=== PATIENT | female | born 1995 | race Caucasian/White ===

== ENCOUNTER 2019-04-26 20:02 | Inpatient (IN) | payer OTHER ==
[~2019-04-26] VITALS: Ht 154.9 cm; Wt 83.1 kg
[~2019-04-26 20:02] MED LIST: CALC600T24 PO; FER325 PO; FOL8 PO; PREN-93 PO
[2019-04-26 21:34] VITALS: Ht 154.9 cm; Wt 83.1 kg
[2019-04-26 21:36] VITALS: BP 92/59; PULSE 80; RESP 18
[2019-04-26] MEDS ORDERED: LACTATED RINGER'S 1,000 ML IV PRN (22:37)
[2019-04-26] MEDS ORDERED: MISOPROSTOL 200 MCG TAB PR PRN (23:00)
[2019-04-26] MEDS ORDERED: OXYTOCIN 30 UNITS/LR 500 ML IV SCH ×2 (23:00)
[2019-04-26] MEDS ORDERED: BUTORPHANOL 2 MG INJ IV PRN (23:00)
[2019-04-26] MEDS ORDERED: LIDOCAINE 1% (MPF) 30 ML INJ INJ PRN (23:00)
[2019-04-26] MEDS ORDERED: IBUPROFEN 600 MG TAB PO PRN (23:00)
[2019-04-26] MEDS ORDERED: CARBOPROST 250 MCG INJ IM PRN (23:00)
[2019-04-26] MEDS ORDERED: METHYLERGONOVINE 0.2 MG INJ IM PRN (23:00)
[2019-04-26] MEDS ORDERED: OXYTOCIN 30 UNITS/LR 500 ML IV PRN (23:00)
[2019-04-26] MEDS: LACTATED RINGER'S 1,000 ML IV SCH (23:28)
[2019-04-27] MEDS: LACTATED RINGER'S 1,000 ML IV SCH ×3 (02:51→18:23)
[2019-04-27] MEDS: MISOPROSTOL 50 MCG CAPSULE PO SCH ×4 (03:07→22:24)
--- NOTE | 2019-04-27 03:11 | TRIAGE ---
OB Triage Datetime Report Generated by CPN: 04/27/2019 03:10 Datetime: 04/26/2019 23:51 Vaginal Exam Dilatation (cms): 1.0 Effacement (%): 40 Station: -3 Exam By: sahara Vaginal Bleeding: None Cervix, Consistency: Moderate Cervix, Position: Posterior Presentation 'A': Cephalic Datetime: 04/26/2019 23:30 Time of Arrival: 04/26/2019 23:30 EGA: 37.0 Arrived By: Ambulatory Arrived From: Home Datetime: 04/26/2019 23:13 Stage of : OB Triage Labor Evaluation Frequency: 1-7 Monitor Mode: External Duration (sec)2399: 40-70 Quality: Mild Pattern: Normal: <= 5 Contractions in 10 Minutes Resting Tone [place]: Relaxed Heart Rate FHR Baseline Rate: 125 Monitor Mode: External US FHR Baseline Changes: No Baseline Change Variability: Moderate 6-25 bpm Accelerations: Prolonged Datetime: 04/26/2019 22:51 Membrane Status: Intact Datetime: 04/26/2019 22:20 Stage of : OB Triage Labor Evaluation Frequency: 1-8 Monitor Mode: External Duration (sec)2399: 40-70 Quality: Mild Pattern: Normal: <= 5 Contractions in 10 Minutes Resting Tone [place]: Relaxed Heart Rate FHR Baseline Rate: 125 Monitor Mode: External US Variability: Moderate 6-25 bpm Accelerations: 15X15 Decelerations: None Datetime: 04/26/2019 21:54 Stage of : OB Triage Datetime: 04/26/2019 21:52 Stage of : OB Triage Datetime: 04/26/2019 21:30 Stage of : OB Triage Labor Evaluation Frequency: 1.5-6 Monitor Mode: External Duration (sec)2399: 40-60 Quality: Mild Pattern: Normal: <= 5 Contractions in 10 Minutes Resting Tone [place]: Relaxed Heart Rate FHR Baseline Rate: 120 Monitor Mode: External US Variability: Moderate 6-25 bpm Accelerations: 15X15 Decelerations: Variable Category: Category II Datetime: 04/26/2019 21:18 Stage of : OB Triage Datetime: 04/26/2019 21:04 Stage of : OB Triage Datetime: 04/26/2019 21:03 Stage of : OB Triage Assessment Type: Triage Maternal Assessment Level of Consciousness: Keenly Alert, Responsive DTR's/Clonus: DTRs 2+; No Clonus Headache: Denies Blurred Vision: No Respiratory Effort: Unlabored; Regular Rhythm; Equal Expansion Breath Sounds, Left: Clear and Equal Breath Sounds, Right: Clear and Equal Nausea/Vomiting: Denies RUQ Epigastric Pain: Denies Lower Extremities Edema: None Degree: None Upper Extremities Edema: None Degree: None Facial Edema: None Temperature Route: Oral Fall Risk Assessment History of Falling: (0) No Secondary Diagnosis: (0) No Ambulatory Aid: (0) Bedrest/Nurse Assist IV Therapy: (0) No Gait: (0) Normal/Bedrest/Immobile Mental Status: (0) Oriented to Own Ability Fall Score: 0 Fall Risk Score Definition: No Risk: No action required Pain Assessment Pain Scale: 0 Pain Presence: None/Denies Pain Type: N/A Datetime: 04/26/2019 21:01 EGA: 37.0 Datetime: 04/26/2019 21:00 Time of Arrival: 04/26/2019 19:49 Arrived By: Ambulatory Arrived From: [facility] Chief Complaint: Body itching since Tuesday Pt came to triage sent from MD office with orders for NST/BPP/CMP Movement: Present Contractions: Denies/Absent Rupture of Membranes: Denies Vaginal Bleeding: None Vaginal Discharge: Denies Abdominal Trauma: Not Applicable Time Provider Notified: 04/26/2019 21:54 Provider Notified: Initial Plan: NST/BPP/CMP Datetime: 04/26/2019 20:57 Stage of : OB Triage Monitor Mode: External Contraction Comments: [place] applied Heart Rate FHR Baseline Rate: 135 Monitor Mode: External US Comments: EFM applied Datetime: 04/26/2019 20:25 Stage of : OB Triage Datetime: 04/26/2019 20:14 Stage of : OB Triage
--- NOTE | 2019-04-27 13:59 | HP ---
Date/Time of Note Date/Time of Note DATE: 04/27/19 TIME: 13:54 OB - History Hx of Present Chief Complaint: generalized itching Estimated Due Date: May 17, 2019 : 5 Para: 3 Spontaneous : 1 Therapeutic : 0 Care: Good Care Ultrasounds: Normal mid trimester US Obstetrical Complications: None Medical Complications: None Past Family/Social History * Past Medical, Surgical, Family and Obstetric Histories reviewed from chart. GBS Status: Negative OB Admission Exam Vital Signs Vital Signs Vital Signs Date Temp Pulse Resp B/P (MAP) Pulse Ox O2 O2 Flow FiO2 Time Delivery Rate 04/26/19 98.3 80 18 92/59 (70) Room Air 21:36 Physical Exam HEENT: WNL Heart: Rhythm Normal Lungs: Clear, Equal Abdomen: WNL Extremities: Normal Reflexes: Normal Cervical Dilatation: None Effacement: 50% Station: -1 Membranes: Intact Heart Rate: 120's Accelerations: Accelerations Present Decelerations: No Decelerations Varibility: Moderate Last 72 hours Lab Results CBC & BMP 04/26/19 20:25 04/26/19 23:25 Liver Function Test 04/26/19 20:25 Alanine Aminotransferase (ALT/SGPT) 102 H Albumin 3.6 Alkaline Phosphatase 218 H Aspartate Amino Transf (AST/SGOT) 68 H Direct Bilirubin 0.00 Total Protein 7.4 OB Assessment/Plan Reason for admission: induction of labor Other Assessment: Suspected intrahepatic cholestasis of Plan: Induction Induction Method: per Misoprostol Protocol Other plan: Case discussed with Dr Beasley ([facility]) who recommends to induce the patient at this time due to suspicion for intrahepatic cholestasis of . SERGEY HOOPER MD Apr 27, 2019 13:59
[2019-04-28] MEDS: MISOPROSTOL 50 MCG CAPSULE PO SCH ×4 (02:35→13:00)
[2019-04-28] MEDS: LACTATED RINGER'S 1,000 ML IV SCH ×2 (04:38→11:41)
[2019-04-28] MEDS ORDERED: OXYTOCIN 30 UNITS/LR 500 ML IV SCH (12:30)
[2019-04-28] MEDS ORDERED: FENTAnyl 2MCG/ML-ROPIV 0.2% 100 ML ONE (13:07)
[2019-04-28] MEDS ORDERED: NALBUPHINE HCL (10 MG/1 ML) INJ IV PRN (14:00)
[2019-04-28] MEDS ORDERED: FENTAnyl 2MCG/ML-ROPIV 0.2% 100 ML BAG EPI SCH (14:00)
[2019-04-28] MEDS ORDERED: NALOXONE (0.4 MG/ML) INJ IV PRN (14:00)
[2019-04-28] MEDS ORDERED: ONDANSETRON 4 MG INJ IV PRN (14:00)
[2019-04-28] MEDS ORDERED: DIPHENHYDRAMINE 50 MG INJ IV PRN (14:00)
--- NOTE | 2019-04-28 14:00 | PREAC ---
Date/Time of Note Date/Time of Note DATE: 04/28/19 TIME: 13:56 Anesthesia Eval and Record Evaluation Time Pre-Procedure Interview DATE: 04/28/19 TIME: 12:26 Age 24 Sex female NPO: 8 hrs Preoperative diagnosis iup @ 38 wks, cholestasis, labor, Planned procedure nas Past Medical History Past Medical History: Includes GI: Other (cholestasis) : : (5), Para: (3), Gestational age: (38 wks.), Other (cholestasis) Surgery & Anesthesia Issues No known issue Meds Anticoagulation: No Beta [place] within 24 hr: No Reason Beta Sabine not given: Pt. not on B-Sabine Reported Medications Folic Acid* (Folic Acid*) 0.8 Mg Tablet, 0.8 MG PO DAILY, TAB 04/26/19 Calcium Carbonate* (Calcium Carbonate*) 600 MG Ca Tab, 600 MG PO DAILY, TAB 04/26/19 Vit No.124/Iron/FA ( Vitamin Tablet) 1 Each Tablet, 1 EACH PO DAILY, TAB 04/26/19 Ferrous Sulfate* (Ferrous Sulfate*) 325 Mg Tabec, 325 MG PO DAILY, TAB 04/26/19 Current Medications Lactated Ringer's 1,000 ml @ 125 mls/hr Q8H IV Last administered on 04/28/19at 11:41; Admin Dose 125 MLS/HR; Start 04/26/19 at 22:37 Butorphanol Tartrate (Stadol) 2 mg Q2H PRN IV .PAIN SCALE 6-10; Start 04/26/19 at 23:00 Lidocaine (Xylocaine 1% (Mpf)) 30 ml ONCE PRN INJ .EPISIOTOMY; Start 04/26/19 at 23:00 Oxytocin/Lactated Ringer's 500 ml @ 500 mls/hr ONCE POST IV ; Start 04/26/19 at 23:00 Oxytocin/Lactated Ringer's 500 ml @ 125 mls/hr POST IV ; Start 04/26/19 at 23:00 Ibuprofen (Motrin) 600 mg ONCE PRN PO .PAIN 1-5; Start 04/26/19 at 23:00 Lactated Ringer's 1,000 ml @ 2,000 mls/hr Q30M PRN IV .ANESTHESIA Last administered on 04/28/19at 12:27; Admin Dose 2,000 MLS/HR; Start 04/26/19 at 22:37 Oxytocin/Lactated Ringer's 500 ml @ 0 mls/hr ONCE PRN IV .VAGINAL BLEEDING; Start 04/26/19 at 23:00 Methylergonovine Maleate (Methergine) 0.2 mg ONCE PRN IM .VAGINAL BLEEDING; Start 04/26/19 at 23:00 Carboprost Tromethamine (Hemabate) 250 mcg ONCE PRN IM .VAGINAL BLEEDING; Start 04/26/19 at 23:00 Misoprostol (Cytotec) 1,000 mcg ONCE PRN IN .VAGINAL BLEEDING; Start 04/26/19 at 23:00 Misoprostol (Cytotec 50 Mcg Capsule) 50 mcg Q4 PO Last administered on 04/28/19at 06:37; Admin Dose 50 MCG; Start 04/27/19 at 01:00 Oxytocin/Lactated Ringer's 500 ml @ 0 mls/hr FOR INDUCTION IV Last administered on 04/28/19at 12:29; Admin Dose 1 MLS/HR; Start 04/28/19 at 12:30 Meds reviewed: Yes Allergies Coded Allergies: No Known Allergy (Unverified , 04/26/19) Allergies Reviewed: Yes Labs/Studies Labs Reviewed: Reviewed by anesthesiologist Result Diagram: 04/26/19 0440 04/26/192024 test: Positive Studies: ECG (n/a), CXR (n/a) Pre-procedure Exam Last vitals Vital Signs Date Temp Pulse Resp B/P (MAP) Pulse Ox O2 O2 Flow FiO2 Time Delivery Rate 04/26/19 98.3 80 18 92/59 (70) Room Air 21:36 Airway: Adequate mouth opening, Adequate thyromental dist Mallampati: Mallampati II Teeth: Normal Lung: Normal Heart: Normal ASA Physical Status ASA physical status: 2 Emergency: E Planned Anesthetic General/MAC: MAC Neuraxial: Epidural Planned Pain Management Epidural, Parenteral pain med, Other neuraxial med Pre-operative Attestations Prior to commencing anesthesia and surgery, the patient was re-evaluated, there was verification of: *The patient's identity *The results of appropriate recent lab work and preoperative vital signs *The above evaluation not changing prior to induction *Anesthetic plan, risk benefits, alternative and complications discussed with patient/family; questions answered; patient/family understands, accepts and wishes to proceed. Athletic Director used DELMA DALLAS MD Apr 28, 2019 14:00
[2019-04-28] MEDS ORDERED: CEFAZOLIN 2 GM/50 ML (PMX) 50 ML IVPB ONE ×2 (21:09→21:30)
--- NOTE | 2019-04-28 21:21 | LDN ---
Date/Time of Note Date/Time of Note DATE: 04/28/19 TIME: 21:17 Delivery Summary over intact perineum. Placenta and membranes delivered spontaneously and complete. Uterine atony noted. Hemabate, Cytotec and methergine given. Using a large curette, sharp curettage performed. Weeks of Gestation 37+ weeks Placenta Delivered: Spontaneously Meconium: none Episiotomy: No Perineal laceration: 0 Anesthesia type: Epidural Estimated blood loss: 400 Sponge & Needle done & correct: Yes All needle counts correct: Yes Any foreign bodies felt in the: No Infant Delivery Information Sex Infant Sex: male Apgars 1 Minute: 9 5 Minute: 9 Suctioning Nose & mouth suctioned at eun: No Delee suction performed: No Umbilical Cord Umbilical cord with: 3 Vessels Cord presentations: nuchal cord Nuchal cord present X: 1 Cord Blood was obtained: Yes Mother & Baby Disposition Disposition Mom & Baby to Maternity; Good: Yes SERGEY HOOPER MD Apr 28, 2019 21:21
[2019-04-28 22:55] VITALS: BP 134/89; PULSE 72; RESP 19
[2019-04-28] MEDS ORDERED: LACTATED RINGER'S 1,000 ML IV* SCH (22:58)
[2019-04-28] MEDS ORDERED: METHYLERGONOVINE 0.2 MG INJ IM PRN (23:00)
[2019-04-28] MEDS ORDERED: WITCH HAZEL/GLYCERIN PAD PR PRN (23:00)
[2019-04-28] MEDS ORDERED: OXYTOCIN 30 UNITS/LR 500 ML IV PRN (23:00)
[2019-04-28] MEDS ORDERED: HYDROCODONE/APAP (5/325) TAB PO PRN (23:00)
[2019-04-28] MEDS ORDERED: ACETAMINOPHEN 325 MG TAB PO PRN (23:00)
[2019-04-28] MEDS ORDERED: CARBOPROST 250 MCG INJ IM PRN (23:00)
[2019-04-28] MEDS ORDERED: MISOPROSTOL 200 MCG TAB PR PRN (23:00)
[2019-04-28] MEDS ORDERED: DIBUCAINE 1% 30 GM OINT TOP PRN (23:00)
[2019-04-28] MEDS ORDERED: BENZOCAINE 20% 56 ML SPRAY TOP PRN (23:00)
--- NOTE | 2019-04-29 02:52 | PAC ---
Date/Time of Note Date/Time of Note DATE: 04/29/19 TIME: 02:52 Post-Anesthesia Notes Post-Anesthesia Note Last documented vital signs Vital Signs Date Temp Pulse Resp B/P (MAP) Pulse Ox O2 O2 Flow FiO2 Time Delivery Rate 04/28/19 98.0 72 19 134/89 Room Air 22:55 (104) Activity: WNL Respiratory function: WNL Cardiovascular function: WNL Mental status: Baseline Pain reasonably controlled: Yes Hydration appropriate: Yes Nausea/Vomiting absent: Yes DELMA DALLAS MD Apr 29, 2019 02:52
[2019-04-29 03:56] VITALS: BP 120/71; PULSE 65; RESP 17
[2019-04-29] MEDS: IBUPROFEN 600 MG TAB PO SCH ×5 (05:19→23:41)
[2019-04-29] MEDS: SENNA/DOCUSATE NA (8.6MG/50MG) TAB PO SCH ×2 (08:39→21:38)
[2019-04-29 08:47] VITALS: BP 89/52; PULSE 67; RESP 18
--- NOTE | 2019-04-29 13:29 | QN ---
Documentation Comment No complaint Afebrile VSS Fundus firm Lochia scant PPD #1 Stable Continue present care. SERGEY HOOPER MD Apr 29, 2019 13:29
[2019-04-29 15:36] VITALS: BP 97/59; PULSE 61; RESP 19
[2019-04-29 20:00] VITALS: BP 97/56; PULSE 73; RESP 20
[2019-04-30 03:45] VITALS: BP 107/64; PULSE 74; RESP 20
[2019-04-30] MEDS: IBUPROFEN 600 MG TAB PO SCH ×3 (05:47→18:06)
[2019-04-30 08:00] VITALS: BP 106/65; PULSE 73; RESP 18
[2019-04-30] MEDS: SENNA/DOCUSATE NA (8.6MG/50MG) TAB PO SCH (08:22)
[2019-04-30] MEDS ORDERED: DIPHTH/TET/ACEL PERTUSS (ADULT) 0.5 ML VIAL IM* ONE (09:00)
[2019-04-30 15:45] VITALS: BP 113/73; PULSE 67; RESP 16
--- NOTE | 2019-04-30 19:25 | DS ---
Date/Time of Note Date/Time of Note DATE: 04/30/19 TIME: 19:24 Obstetrical Discharge Record Final Diagnosis Final Diagnosis: Term delivered Other Final Diagnosis Intrahepatic cholestasis of Vaginal Delivery Obstetrical Delivery: Spontaneous Complications Induction: Yes Condition on Discharge Physical Assessment Voiding: Yes Bowel Movement: Yes Breast: Soft, non-tender, Filling Fundus: Firm Calf Tenderness: No Patient Condition: Stable SERGEY HOOPER MD Apr 30, 2019 19:25
--- NOTE | 2019-05-01 21:39 | DELSUM ---
Delivery Summary A-C Datetime Report Generated by CPN: 05/01/2019 21:39 DELIVERY PERSONNEL Bi Manager: Negro Damonel MATERNAL INFORMATION Delivery Anesthesia: Epidural Medications in Delivery: LR 500ML PITOCIN 30 UNITS Delivery QBL (ml): 400 Placenta Cultured: No Maternal Complications: Other Other Maternal Complications: CHOLEASTASIS LABOR SUMMARY EDC: 05/17/2019 00:00 No. Babies in Womb: 1 Attempted: No Labor Anesthesia: Epidural LABOR INFORMATION Reason for Induction: Other Reason for Induction- Other: CHOLEASTASIS Onset of Labor: 04/27/2019 03:10 Complete Dilatation: 04/28/2019 20:29 Cervical Ripening Agents: Cytotec @ 50 Group B Beta Strep: Negative Antibiotics # of Doses: 1-ancef Antibiotics Time of Last Dose: 04/28/2019 21:30 Steroids Given: None Reason Steroids Not Administered: Not Applicable MEMBRANES Membranes Rupture Method: Artificial Rupture of Membranes: 04/28/2019 20:52 Length of Rupture (hr): 0.02 Amniotic Fluid Color: Clear Amniotic Fluid Amount: Large STAGES OF LABOR Stage 1 hr: 41 Stage 1 min: 19 Stage 2 hr: 0 Stage 2 min: 24 Stage 3 hr: 0 Stage 3 min: 3 Total Time in Labor hr: 41 Total Time in Labor min: 46 VAGINAL DELIVERY Episiotomy: None Laceration Extension: N/A Laceration Type: None Initial Vag Sponge Count: 20 Final Vag Sponge Count: 20 Initial Vag Sharps Count: 0 Final Vag Sharps Count: 0 Sponge Count Correct: Yes; Vaginal Sweep Performed Sharps Count Correct: Yes BABY A INFORMATION Infant Delivery Date/Time: 04/28/2019 20:53 Method of Delivery: Vaginal Born in Route : No : N/A Forceps: N/A Vacuum Extraction: N/A Shoulder Dystocia : N/A SHOULDER DYSTOCIA BABY A Infant Delivery Date/Time: 04/28/2019 20:53 PRESENTATION/POSITION BABY A Presentation: Cephalic Cephalic Presentation: Vertex Vertex Position: Right Occipital Posterior Breech Presentation: N/A PLACENTA INFORMATION BABY A Placenta Delivery Time : 04/28/2019 20:56 Placenta Method of Delivery: Expressed Placenta Status: Delivered SCORES BABY A Heart Rate 1 min: >100 bpm Resp Effort 1 min: Good Cry Reflex Irritability 1 min: Cough/Sneeze/Pulls Away Muscle Tone 1 min: Active Motion Color 1 min: Body [place], Extremit Blue Resuscitation Effort 1 min: Tactile Stimulation SCORE 1 MIN: 9 Heart Rate 5 min: >100 bpm Resp Effort 5 min: Good Cry Reflex Irritability 5 min: Cough/Sneeze/Pulls Away Muscle Tone 5 min: Active Motion Color 5 min: Body [place], Extremit Blue Resuscitation Effort 5 min: Tactile Stimulation SCORE 5 MIN: 9 INFORMATION BABY A Gestational Age at Delivery: 37.2 Gestational Status: Early Term- 37- 38.6 Weeks Infant Outcome : Liveborn, with signs of life Condition : Stable Infant Sex: Male IDENTIFICATION/MEDS BABY A ID Band Number: [id number] ID Band Location: Right Leg; Left Arm Sensor Applied: Yes Sensor Number: [id number] Sensor Location : Cord Clamp Vitamin K Given : Not Given Erythromycin Given: Not Given WEIGHT/LENGTH BABY A Infant Birthweight (gm): 2760 Weight (lb): 6 Weight (oz): 1 Length (in): 18.50 Infant Length (cm): 46.99 CORD INFORMATION BABY A No. Cord Vessels: 3 Nuchal Cord : Around Neck x1, Tight Cord Blood Taken: Yes Infant Suction: Mouth; Nose ASSESSMENT BABY A Complications: Multiple Variable Decels
== END 2019-04-30 20:15 | disposition home or self-care (01) | DRG 796 ==
LOC: OBT 20:02 → L-D 20:02 → OBT 22:37 → PP1 04-28 22:57
PROVIDERS: ADMIT Obstetrics & Gynecology; ATTEND Obstetrics & Gynecology
PROC: 10E0XZZ Delivery of Products of Conception, External Approach (ICD-10-PCS; principal; 2019-04-28)
PROC: 10D17ZZ Extraction of Products of Conception, Retained, Via Natural or Artificial Opening (ICD-10-PCS; 2019-04-28)
DX: O26.62 Liver and biliary tract disorders in childbirth (principal); K83.1 Obstruction of bile duct; Z37.0 Single live birth; O62.2 Other uterine inertia; O69.81X0 Labor and delivery complicated by cord around neck, without compression, not applicable or unspecified; Z3A.37 37 weeks gestation of pregnancy
CPT/HCPCS: 62322; 76818; 80053; 81001; 81003; 85025; 85610; 85730; 86592; 86850; 86900; 86901; 87340; G0463; J0690; J1200; J2210; J2405; J2590; J3010; J7120